=== PATIENT | female | born 1965 | race Caucasian/White ===

== ENCOUNTER → 2023-07-06 | Outpatient (CLI) | payer BC ==
[~2023-07-06] MED LIST: ALBU8.5H INH; ALPR0.25 PO; AZEL0.055 NARES; BARIUM SULFATE 700 MG TABLET (E-Z-DISK) As Ordered ONE; CETI10CA13 PO; E-Z-PAQUE 96% w/w SUSP 176GM BTL As Ordered ONE; ESTR62CR VG; FLUT12HF2 INH; MONT10TA97 PO; PROBCAP14 PO; VARIBAR NECTAR 40% w/v 240ML SUSP BTL As Ordered ONE; VARIBAR PUDDING 40% w/v 230ML TUBE As Ordered ONE; VIACTIVE PO
== END ==
LOC: M RAD 11:36
PROVIDERS: ATTEND Internal Medicine Gastroenterology
DX: R13.10 Dysphagia, unspecified (principal)

== ENCOUNTER 2023-08-02 10:26 | Day surgery (SDC) | payer BC ==
[~2023-08-02] VITALS: Ht 160 cm; Wt 44.1 kg
[~2023-08-02 10:26] MED LIST changes: -BARIUM SULFATE 700 MG TABLET (E-Z-DISK) As Ordered ONE; -E-Z-PAQUE 96% w/w SUSP 176GM BTL As Ordered ONE; -VARIBAR NECTAR 40% w/v 240ML SUSP BTL As Ordered ONE; -VARIBAR PUDDING 40% w/v 230ML TUBE As Ordered ONE
[2023-08-02] MEDS: NS 1,000 ML IV ONE (11:16)
[2023-08-02] MEDS ORDERED: fentaNYL 100 MCG/2 ML INJECTION As Ordered ONE (12:13)
[2023-08-02 12:45] VITALS: BP 108/65; O2SAT 95
== END 2023-08-02 12:57 | disposition home or self-care (01) ==
LOC: M OPP 10:26
PROVIDERS: ATTEND Internal Medicine Gastroenterology
DX: R13.10 Dysphagia, unspecified (principal); J45.909 Unspecified asthma, uncomplicated; Z88.8 Allergy status to other drugs, medicaments and biological substances; Z88.0 Allergy status to penicillin; Z91.040 Latex allergy status; Z79.51 Long term (current) use of inhaled steroids; Z79.899 Other long term (current) drug therapy
CPT/HCPCS: 43239; 43249; 88305; J3010